=== PATIENT | female | born 1985 | race Caucasian/White ===

== ENCOUNTER → 2016-08-06 | Day surgery (SDC) | payer OTHER ==
[~2016-08-06] VITALS: Ht 170.2 cm; Wt 99.8 kg
[~2016-08-06] MED LIST: BENTYL20 MG PO; CARAFATE1 G1 PO; GLYBURIDE2.5 MG PO; GLYBURIDE5 MG PO; IBUPROFEN800 MG PO; LEXAPRO10 M1 PO; METOCLOPRAMIDE H5 MG PO; PANTOPRAZOLE SO40 M1 PO; PERCOCET 325 MG1 TA2 PO; TRAMADOL50 MG PO; VITAFOL-ONE1 SGL PO; ZANTAC150 M1 PO; ZOFRAN 4MG ORALL4 MG PO; ZOFRAN4 M1 SL
--- NOTE | 2016-08-06 12:29 | Operative Report ---
Operative/Inv Procedure Report Surgery Date: 08/06/16 Name of Procedure: Laparoscopic tubal sterilization Pre-Operative Diagnosis: Multiparity Post-Operative Diagnosis: Same Estimated Blood Loss: scant Surgeon/Daycare Manager: AI FUNK MD Anesthesia: general endotracheal tube Operative/Procedure Note Note: Procedure note patient taken to the operating room placed supine position after adequate anesthesia patient placed in dorsolithotomy position the vagina from dorsal fashion bladder was catheterized examination anesthesia performed at this point the CO2 tenaculum was placed on the Intralipid surgeons down traction cervix was on inserted with the Martinez cannula surgeon regowned and gloved. The abdomen was prepped and draped so fashion at this point at the umbilicus a stab incision was made to allow for the entry of Veress needle the abdomen was insufflated approximately 4 L of CO2 to the entry of the Veress needle with a negative drop test I to liver edge dullness. A 10 mm trocar was inserted atraumatically at the umbilicus through that sheath a laparoscope was placed under direct visualization a 5 mm trocar was placed 2 fingerbreadths of symptoms pubis patient tolerated that well at this point the right tube was picked up carried to its fimbriated end possibly 7 cm that tube was Bovie coagulated left tube was picked up carried to its fimbriated end possibly symptoms that tube was Bovie coagulated pictures were taken hemostasis was apparent. Maximal CO2 was removed from the abdomen the incision at the umbilicus was oversewn using 0 after advancements removed from the abdomen the skin was reapproximated both incisions using 3-0 interrupted Marcaine was injected on both incisions sterile dressings were applied to both incisions patient tolerated all this well. The Martinez cannula was moved advancements removed from the vagina on patient was awakened from anesthesia extubated and transported recovery room awake and alert. With counts correct Findings: Retroverted uterus normal tubes and ovaries bilaterally
== END ==
LOC: STS 01:41
DX: Z30.2 Encounter for sterilization (principal); K21.9 Gastro-esophageal reflux disease without esophagitis
CPT/HCPCS: J0131; J1630; J2250